=== PATIENT | male | born 1995 | race Caucasian/White ===

== ENCOUNTER 2021-08-04 17:42 | Emergency (ER) | payer MEDICAID ==
[~2021-08-04] VITALS: Ht 177.8 cm; Wt 88.5 kg
[2021-08-04 19:57] VITALS: BP 135/90
[2021-08-04] MEDS ORDERED: AMOX-430 PO (20:08)
[2021-08-04] MEDS ORDERED: TDAP [DIPH/PERTUSSIS/TET] 0.5 ML VIAL IM ONE ×2 (20:19→20:30)
== END 2021-08-04 20:17 | disposition home or self-care (01) ==
LOC: ER 17:48
DX: S01.21XA Laceration without foreign body of nose, initial encounter (principal); Z79.899 Other long term (current) drug therapy; W54.0XXA Bitten by dog, initial encounter; Y93.89 Activity, other specified; Y92.89 Other specified places as the place of occurrence of the external cause; Y99.8 Other external cause status
CPT/HCPCS: 90715